=== PATIENT | male | born 1950 | race Caucasian/White ===

== ENCOUNTER 2016-06-14 11:04 | Outpatient (RCR) | payer MEDICARE, OTHER ==
--- OUTSIDE RECORDS SUMMARY | 2016-05-15 14:32 | XMS REPORT | Continuity of Care Document ---
Author Author [facility] Address Unknown Phone Unavailable Care Team Providers Care Mechanical Ordnance Assembler Name Role Phone Jose Palomares PCP [phone] Source Comments Some departments are not documenting in the electronic medical record. If you do not see the information that you expected, contact Release of Information in the Health Information Management department at [phone] for further assistance in locating additional records.[facility] Active Allergies and Adverse Reactions No Known Allergies Current Medications Prescription Sig. Disp. Refills Start End Date Status Date simvastatin (ZOCOR) 40 mg Take 40 mg by mouth at Active tablet bedtime daily. cholecalciferol(+) Take 2,000 Units by mouth Active (VITAMIN D3) 2,000 unit daily. tablet Active Problems Problem Noted Date DVT (deep venous thrombosis) ([facility]) 07/29/2014 Overview: Post-op DVT identified 07/29/14 L ast Assessment & Plan: Continue treatment dose Lovenox. 3 month course nearly complete. Prostate cancer ([facility]) 06/14/2014 Overview: Formatting of this note may be different from the original. Pre-PNBx PSA 5 (05/10/14) 05/17/14 PNBx: GS 5+4 in 05/15 cores 05/25/[address] abd/pel: no evidence of metastatic disease, enhancing renal mass Radical Prostatectomy : 07/14/2014 Prostate Size : Weight: 67g Size: 5.9 x 5.6 x 3.9 cm Lymph Node Sampling : Pelvic lymph node dissection Histologic Type : Adenocarcinoma (acinar, not otherwise specified) Histologic Grade : Em Pattern Primary Pattern : Grade 4 Secondary Pattern : Grade 5 Tertiary Pattern : Grade 3 Total Douglas Score: 4+5=9 Tumor Quantitation Proportion (percentage) of prostate involved by tumor: 50% Extraprostatic Extension : Present, extensive Seminal Vesicle Invasion : Not identified Margin(s) involved by invasive carcinoma : Apical and right posterior margins Treatment Effect on Carcinoma : Not identified Lymph-Vascular Invasion : Not identified Perineural Invasion : Present Pathologic Staging (pTNM) : pT3a pN0 M not applicable Primary Tumor (pT) pT3a: Extraprostatic extension Regional Lymph Nodes (pN) pN0: No regional lymph node metastasis Number of Lymph Nodes Examined Specify: 21 Number of Lymph Nodes Involved Specify:0 Distant Metastasis (pM) Not applicable Additional Pathologic Findings Inflammation (specify type): Acute and chronic inflammation Ancillary Studies Not performed [facility] PSA Hx: Lab Results Component Value Date PSA 0.10 10/25/2014 PSA 0.07 09/06/2014 L ast Assessment & Plan: High-risk prostate cancer. PSA up slightly from 0.07 to 0.1 today. Discussed options with patient today. The two primary options today include continued close observation vs. adjuvant radiation. Patient currently has regained most of his preoperative continence, though he continues to report using 1 pad per day. He understands that adjuvant radiation would likely arrest any further recovery of incontinence, though the risk of further delay in adjuvant treatment is progression of his high-risk disease. - He would to be referred to a radiation oncologist closer to home. Will find a provider in [place], [place] in the [email or web address] system. - He will follow up with us here in 4 months with a PSA. 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 - Will proceed with surveillance. At this time, prostate cancer is the more high-risk disease and immediate management will be focused on his prostate cancer. Social History Tobacco Use Types Packs/Day Years Used Date Former Smoker Cigarettes 1 5 Smokeless Tobacco: Snuff Current User Alcohol Use Drinks/Week oz/Week Comments No 0.0 3 beers / day Last Filed Vital Signs Vital Sign Reading Time Taken Blood Pressure 118/78 10/25/2014 10:16 AM CDT Pulse 65 10/25/2014 10:16 AM CDT Temperature 36.6 C (97.9 F) 07/31/2014 11:25 AM [employer] Respiratory Rate 14 10/25/2014 10:16 AM CDT Height 1.702 m (5' 7") 10/25/2014 10:16 AM CDT Weight 63.322 kg (139 lb 9.6 oz) 10/25/2014 10:16 AM CDT Body Mass Index 21.86 10/25/2014 10:16 AM CDT Oxygen Saturation 100% 07/31/2014 11:25 AM [employer] Plan of Care Health Maintenance Due Date Last Done Comments Hepatitis C Screening 1950 Physical (Comprehensive) 1957 Exam Pertussis Vaccine 1961 Tetanus Vaccine 1967 Colorectal Cancer 02/11/2000 Screening Shingles Vaccine 2010 Prevnar/Pneumovax (#1) 2015 Influenza Vaccine 04/04/2016 Results from Last 3 Months Not on file
== END 2016-08-13 | disposition home or self-care (01) ==
LOC: ONC 11:04
PROVIDERS: ATTEND Radiology Radiation Oncology
DX: C61 Malignant neoplasm of prostate (principal)
CPT/HCPCS: 36415; 84153; 99213

== ENCOUNTER 2016-10-25 11:54 | Outpatient (RCR) | payer MEDICARE, OTHER | END 2017-01-23 | disposition home or self-care (01) | DX: C61 Malignant neoplasm of prostate (principal) ==

== ENCOUNTER 2017-04-28 13:29 | Outpatient (RCR) | payer MEDICARE, OTHER | END 2017-05-03 | disposition home or self-care (01) | LOC: ONC 13:29 | PROVIDERS: ATTEND Radiology Radiation Oncology | DX: C61 Malignant neoplasm of prostate (principal) | CPT/HCPCS: 84153 ==

== ENCOUNTER 2017-11-05 08:57 | Outpatient (RCR) | payer MEDICARE, OTHER | END 2018-02-03 | disposition home or self-care (01) | LOC: ONC 08:57 | PROVIDERS: ATTEND Radiology Radiation Oncology | DX: C61 Malignant neoplasm of prostate (principal) | CPT/HCPCS: 36415; 84153 ==

== ENCOUNTER → 2020-11-30 | Outpatient (CLI) | payer MEDICARE ==
[~2020-11-30] MED LIST: CATHETER FLUSH 10 ML SYR IV PRN; HOLD METFORMIN - RECEIVED CONTRAST 20 ML VIAL IV SCH; IOHEXOL 350 MG/ML 100 ML (OMNIPAQUE 350) VIAL IV ONE; NS 100 ML (IVPB) BAG IV ONE
--- NOTE | 2020-11-30 12:31 | Diagnostic Imaging Report ---
PROCEDURE: CT abdomen and pelvis with contrast. TECHNIQUE: Multiple contiguous axial images were obtained through the abdomen and pelvis after administration of intravenous contrast. Auto Exposure Controls were utilized during the CT exam to meet ALARA standards for radiation dose reduction. All CT scans use one or more of the following dose optimizing techniques: automated exposure control, MA and/or KvP adjustment based on patient size and exam type or iterative reconstruction. INDICATION: Elevated PSA. No prior studies are available for comparison. FINDINGS: There is a large abdominal and pelvic ascites. There appears to be significant thickening and nodularity and masses involving the omentum anteriorly consistent with omental caking. Soft tissue nodule does extend through midline anterior abdominal wall defect. Bowel loops appear to be nonobstructed. No discrete liver mass is identified. Gallbladder is unremarkable. There is no biliary ductal dilatation. Pancreas and spleen are unremarkable. No adrenal mass is identified. Right kidney appears to be surgically absent. Left kidney contains probable tiny nonobstructing calculus in lower pole. There is cortical low density in the left kidney too small to characterize most likely a cyst. Aorta is nonaneurysmal. The bladder is decompressed. The bony structures are nonacute. IMPRESSION: Large abdominal and pelvic ascites. There is significant omental caking and nodularity as well as additional sites of peritoneal nodular implants consistent with peritoneal carcinomatosis. No other significant abnormality is seen. Dictated by: Dictated on workstation # [id number]
--- NOTE | 2020-11-30 18:40 | Diagnostic Imaging Report ---
Whole body bone scan at 1:33 PM INDICATION: Prostate cancer This study was performed following administration of 26 mCi of 99m technetium MDP. Anterior and posterior whole-body images were obtained. There are no prior nuclear medicine bone scans available for comparison. The CT abdomen/pelvis exam performed earlier today did note a large amount of abdominal and pelvic ascites. There was also significant omental caking and nodularity. On this exam, there are vague areas of increased uptake throughout the abdomen and pelvis. These may correspond to the omental masses and/or fluid. There is no abnormal uptake arising from the osseous structures to suggest bone edema or a fracture. As noted on the CT exam, the right kidney is surgically absent. The left kidney does show excretion of the radiotracer. IMPRESSION: 1. There is no evidence for metastatic skeletal disease. 2. The vague areas of slightly increased uptake in the abdomen and pelvis may correspond to the ascites and omental nodules seen on the CT abdomen/pelvis exam. 3. The right kidney is surgically absent. Dictated by: Dictated on workstation # [id number]
== END ==
LOC: CARD 11:13
PROVIDERS: ATTEND Emergency Medicine
DX: C61 Malignant neoplasm of prostate (principal); K91.89 Other postprocedural complications and disorders of digestive system; R18.8 Other ascites; Z90.5 Acquired absence of kidney
CPT/HCPCS: 74177; 78306; A9503

== ENCOUNTER → 2020-12-04 | Outpatient (CLI) | payer MEDICARE, OTHER ==
[2020-12-04] VITALS (8 sets, daily range): BP systolic 103–115; BP diastolic 63–77
[~2020-12-04] VITALS: Ht 167.6 cm; Wt 52.3 kg
[2020-12-04 11:16] LABS: INR 0.9 (0.8-1.4)
--- NOTE | 2020-12-04 17:44 | Diagnostic Imaging Report ---
EXAMINATION: Ultrasound guided paracentesis. INDICATION: Ascites. The previous CT abdomen/pelvis exam of 11/30/2020 noted a large amount of abdominal and pelvic ascites. Following aseptic preparation skin and administration of local anesthesia paracentesis was performed using ultrasound guidance along the right flank. Initially, after the needle passed into the fluid collection fluid could not be retrieved. A second attempt was made and this was successful. Approximately 2 L of dark yellow fluid was removed. The patient tolerated the procedure well and was dismissed in good condition. IMPRESSION: 1. There has been a successful paracentesis. 2. These results were discussed with Dr. Dylan Ray. Dictated by: Dictated on workstation # [id number]
== END ==
LOC: RAD 11:00
PROVIDERS: ATTEND Internal Medicine Hematology & Oncology
DX: R18.8 Other ascites (principal)
CPT/HCPCS: 49083; 85610; 88112; 88305; 88341; 88342; 88344; A7048; 36415

== ENCOUNTER 2020-12-26 05:42 | Outpatient (CLI) | payer MEDICARE ==
[~2020-12-26] VITALS: Ht 167.6 cm; Wt 52.2 kg
[2020-12-26] MEDS ORDERED: CHOL400T29 PO (12:16)
[2020-12-26] MEDS ORDERED: [UNRECOGNIZED DRUG - CODE] SQ (12:16)
[2020-12-28] MEDS ORDERED: ACHD5005 PO ×2 (13:56→15:48)
[2020-12-28] MEDS ORDERED: DOCU-143 PO ×2 (13:56→15:48)
== END 2020-12-26 12:24 | disposition home or self-care (01) ==
LOC: PREOP 05:42
PROVIDERS: ATTEND Surgery
DX: Z01.818 Encounter for other preprocedural examination (principal)

== ENCOUNTER 2020-12-28 11:42 | Day surgery (SDC) | payer MEDICARE, OTHER ==
[~2020-12-28] VITALS: Ht 167.6 cm; Wt 52.2 kg
[2020-12-28] VITALS (7 sets, daily range): BP systolic 112–126; BP diastolic 60–73
[~2020-12-28 11:42] MED LIST changes: -CATHETER FLUSH 10 ML SYR IV PRN; +CHOL400T29 PO; -HOLD METFORMIN - RECEIVED CONTRAST 20 ML VIAL IV SCH; -IOHEXOL 350 MG/ML 100 ML (OMNIPAQUE 350) VIAL IV ONE; +LACTATED RINGERS 1,000 ML IV PRN; -NS 100 ML (IVPB) BAG IV ONE; +[UNRECOGNIZED DRUG - CODE] SQ; +ceFAZolin INJECTION 1,000 MG in WATER (STERILE) FOR INJECTION 10 ML IV ONE
[2020-12-28] MEDS ORDERED: LIDOCAINE/EPI 1%-1:100,000 (XYLOCAINE) 20ML ONE (11:51)
--- NOTE | 2020-12-28 12:16 | Progress Note-Pre Operative ---
Pre-Operative Progress Note H&P Reviewed The H&P was reviewed, patient examined and no changes noted. Date Seen by Provider: December 28, 2020 Time Seen by Provider: 12:16 Date H&P Reviewed: December 28, 2020 Time H&P Reviewed: 12:16 Pre-Operative Diagnosis: ABD WALL MASS HAMILTON PRETTY DO December 28, 2020 12:16
[2020-12-28] MEDS ORDERED: ONDANSETRON 4 MG/2 ML (SDV) Z0FRAN ONE (12:28)
[2020-12-28] MEDS ORDERED: LIDOCAINE PF 2% 5 ML (XYLOCAINE) VIAL ONE (12:28)
[2020-12-28] MEDS ORDERED: SEVOFLURANE (ULTANE) 15 ML INHAL SOLN ONE (12:28)
[2020-12-28] MEDS ORDERED: proPOfol 200 MG/20 ML (DIPRIVAN) VIAL IV ONE (12:28)
[2020-12-28] MEDS ORDERED: fentaNYL INJ 100 MCG/2 ML AMP ONE (12:28)
[2020-12-28] MEDS ORDERED: WATER (STERILE) FOR INJECTION 10 ML ONE (12:34)
[2020-12-28] MEDS ORDERED: ceFAZolin INJECTION 1,000 MG ONE (12:34)
[2020-12-28] MEDS ORDERED: morphine INJ 10 MG/ML 1ML (SYR OR VIAL) IVP ONE ×2 (13:00→14:00)
[2020-12-28] MEDS ORDERED: ONDANSETRON 4 MG/2 ML (SDV) Z0FRAN IVP PRN ×2 (13:00→14:00)
--- NOTE | 2020-12-28 13:54 | Progress Note-Post Operative ---
Post-Operative Progess Note Surgeon (s)/Postal Service Window Clerk (s) Surgeon HAMILTON PRETTY DO Postal Service Window Clerk: na Pre-Operative Diagnosis MASS UPPER RIGHT ABDOMEN Post-Operative Diagnosis incisional hernia, abdominal wall mass Procedure & Operative Findings Date of Procedure 12/28/20 Procedure Performed/Findings excision of abdominal wall mass, primary repair of incisional hernia Anesthesia Type general Estimated Blood Loss Estimated blood loss (mL): 50 mL Specimens/Packing Specimens Removed abdominal wall mass HAMILTON PRETTY DO December 28, 2020 13:54
[2020-12-28] MEDS ORDERED: ACHD5005 PO ×2 (13:56→15:48)
[2020-12-28] MEDS ORDERED: DOCU-143 PO ×2 (13:56→15:48)
--- NOTE | 2020-12-28 13:56 | Discharge Inst-Simple/Standard ---
Discharge Inst-Standard Patient Instructions/Follow Up Plan of Care/Instructions/FU: 2 weeks Dilan Activity as Tolerated: No Discharge Diet: Regular Diet Other Inst to Patient Follow up Appt: Make appointment for 2 week. Instructions: No lifting greater than 10 pounds. No strenuous activity. May shower in 24 hours, no tub bath or soaking. Use incentive spirometer at home as directed. No Smoking Skin/Wound Care: You have zach over incision keep clean and dry. Symptoms to Report: Appetite Changes, Extremity Discoloration, Numbness/Tingling, Swelling Increased, Bleeding Excessive, Eyesight Changes, Pain Increased, Urine Color Change, Constipation(Persistent), Fever over 101 degree F, Pain/Pressure in chest, Urinating Difficulty, Cough Up/Vomit Blood, Heart Beat Irreg/Pounding, Pain/Pressure in jaw, Vaginal Bleeding Increase, Cramps in feet or legs, Lightheadedness, Pain/Pressure in shoulder, Diarrhea(Persistent), Memory Changes Suddenly, Questions/Concerns, Weight gain consecutive days, Dizziness/Fainting, Nausea/Vomiting, Shortness of Breath, Weight gain over 2 pounds If questions or concerns contact your physician Or seek help at emergency department. HAMILTON PRETTY DO December 28, 2020 13:56
[2020-12-28] MEDS ORDERED: HYDROmorphone 2 MG/ML VIAL (DILAUDID) IV ONE (14:00)
--- NOTE | 2020-12-28 14:24 | Anesthesia-General Post-Op ---
General Patient Condition Mental Status/LOC: Same as Preop Cardiovascular: Satisfactory Nausea/Vomiting: Absent Respiratory: Satisfactory Pain: Controlled Complications: Absent Post Op Complications Complications None Follow Up Care/Instructions Patient Instructions None needed. Anesthesia/Patient Condition Patient Condition Patient is doing well, no complaints, stable vital signs, no apparent adverse anesthesia problems. AMARA ARMENTA DO December 28, 2020 14:24
--- NOTE | 2020-12-28 19:59 | OPERATIVE REPORT ---
DATE OF SERVICE: 12/28/2020 PREOPERATIVE DIAGNOSIS: Abdominal wall mass. POSTOPERATIVE DIAGNOSIS: Abdominal wall mass with incisional hernia. PROCEDURE: Excision of abdominal wall mass and primary repair of incisional hernia that is incarcerated. SURGEON: Hamilton Kong DO ANESTHESIA: General. ESTIMATED BLOOD LOSS: 50 mL. COMPLICATIONS: None. INDICATIONS: The patient is a 70-year-old male needing biopsy of mass. He understands risks and benefits of procedure and wishes to proceed. Consent was signed in the chart. DESCRIPTION OF PROCEDURE: The patient was taken to the operating suite. He was prepped and draped in sterile fashion. Timeout was performed. Local anesthetic was infiltrated over the palpable mass. A 15-blade scalpel was then used to make a skin incision and cautery was used to dissect down through the subcutaneous tissue when the palpable mass was able to be located. This was grasped and elevated and began to be dissected noting this was a mass off of omentum that was incarcerated through incisional hernia defect. This was then continued to be mobilized, part of the omentum started bleeding, which was able to be grasped and cautery was able to be used to control bleeding. The mass was then excised. The omentum was then dissected off from the hernia, which was unable to be reduced and using a 0 Vicryl, the defect was then closed, performing primary repair of incisional hernia. The area was then irrigated and suctioned. Hemostasis was achieved. The skin was then closed using zach. The area was then washed and dried and sterile bandage was applied. The patient tolerated procedure well without any complications, taken to recovery room in stable condition. Job ID: [id number] DocumentID: [id number] Dictated Date: 12/28/2020 14:55:55 Aemt Date: 12/28/2020 19:58:12 Dictated By: HAMILTON KONG DO
== END 2020-12-28 15:30 | disposition home or self-care (01) ==
LOC: SDC 11:42
PROVIDERS: ATTEND Surgery
DX: K43.0 Incisional hernia with obstruction, without gangrene (principal); C79.2 Secondary malignant neoplasm of skin; C61 Malignant neoplasm of prostate; I10 Essential (primary) hypertension; R18.8 Other ascites; Z90.49 Acquired absence of other specified parts of digestive tract; Z79.899 Other long term (current) drug therapy; Z85.038 Personal history of other malignant neoplasm of large intestine; Z85.528 Personal history of other malignant neoplasm of kidney; Z80.9 Family history of malignant neoplasm, unspecified
CPT/HCPCS: 36430; 87081

== ENCOUNTER → 2021-01-02 | Outpatient (CLI) | payer MEDICARE, OTHER ==
[~2021-01-02] MED LIST changes: +ACHD5005 PO; +DOCU-143 PO; -LACTATED RINGERS 1,000 ML IV PRN; -ceFAZolin INJECTION 1,000 MG in WATER (STERILE) FOR INJECTION 10 ML IV ONE
[2021-01-02 10:24] LABS: HEMATOCRIT 36 % (40-54); HEMOGLOBIN 11.5 G/DL (13.3-17.7); MEAN CORPUSCULAR HEMOGLOBIN 30 PG (25-34); MEAN CORPUSCULAR HGB CONC 32 G/DL (32-36); MEAN CORPUSCULAR VOLUME 95 FL (80-99); MEAN PLATELET VOLUME 10.7 FL (7.4-10.4); PLATELET COUNT 323 10^3/uL (130-400); WHITE BLOOD COUNT 6.7 10^3/uL (4.3-11.0)
[2021-01-02 10:25] LABS: BASOPHILS % (AUTO) 1 % (0-10); EOSINOPHILS # (AUTO) 0.1 10^3/uL (0.0-0.3); EOSINOPHILS % (AUTO) 2 % (0-10); LYMPHOCYTES # (AUTO) 1.7 X 10^3 (1.0-4.0); LYMPHOCYTES % (AUTO) 24 % (12-44); MONOCYTES # (AUTO) 0.6 X 10^3 (0.0-1.0); MONOCYTES % (AUTO) 9 % (0-12); NEUTROPHILS # (AUTO) 4.4 X 10^3 (1.8-7.8); NEUTROPHILS % (AUTO) 64 % (42-75)
[2021-01-02 10:39] LABS: BUN/CREATININE RATIO 15; CARBON DIOXIDE 29 MMOL/L (21-32); CHLORIDE 99 MMOL/L (98-107); CREATININE SERUM 1.11 MG/DL (0.60-1.30); GFR ESTIMATED > 60; GLUCOSE 106 MG/DL (70-105); POTASSIUM 4.1 MMOL/L (3.6-5.0); SODIUM 137 MMOL/L (135-145)
[2021-01-02 10:40] LABS: ALANINE AMINOTRANSFERASE 5 U/L (0-55); ALKALINE PHOSPHATASE 66 U/L (40-136); BILIRUBIN,TOTAL 0.3 MG/DL (0.1-1.0); TOTAL PROTEIN 6.5 GM/DL (6.4-8.2)
== END ==
LOC: LAB FS 09:47
PROVIDERS: ATTEND Internal Medicine Hematology & Oncology
DX: C61 Malignant neoplasm of prostate (principal)
CPT/HCPCS: 36415; 80053; 84153; 85025

== ENCOUNTER 2021-01-09 08:55 | Outpatient (RCR) | payer MEDICARE, OTHER ==
[2020-12-01 10:19] LABS: BASOPHILS # (AUTO) 0.1 10^3/uL (0.0-0.1); BASOPHILS % (AUTO) 1 % (0-10); EOSINOPHILS # (AUTO) 0.1 10^3/uL (0.0-0.3); EOSINOPHILS % (AUTO) 1 % (0-10); HEMATOCRIT 38 % (40-54); HEMOGLOBIN 12.2 g/dL (13.3-17.7); LYMPHOCYTES # (AUTO) 1.1 10^3/uL (1.0-4.0); LYMPHOCYTES % (AUTO) 14 % (12-44); MEAN CORPUSCULAR HEMOGLOBIN 31 pg (25-34); MEAN CORPUSCULAR HGB CONC 32 g/dL (32-36); MEAN CORPUSCULAR VOLUME 96 fL (80-99); MEAN PLATELET VOLUME 10.6 fL (9.0-12.2); MONOCYTES # (AUTO) 0.8 10^3/uL (0.0-1.0); MONOCYTES % (AUTO) 10 % (0-12); NEUTROPHILS # (AUTO) 5.8 10^3/uL (1.8-7.8); NEUTROPHILS % (AUTO) 74 % (42-75); PLATELET COUNT 360 10^3/uL (130-400); WHITE BLOOD COUNT 7.9 10^3/uL (4.3-11.0)
[2020-12-01 10:39] LABS: ALBUMIN 3.7 GM/DL (3.2-4.5); BILIRUBIN,TOTAL 0.2 MG/DL (0.1-1.0); CALCIUM 10.6 MG/DL (8.5-10.1); CREATININE SERUM 1.29 MG/DL (0.60-1.30); POTASSIUM 4.6 MMOL/L (3.6-5.0); TOTAL PROTEIN 6.1 GM/DL (6.4-8.2)
[~2021-01-09 08:55] MED LIST changes: +LEUPROLIDE 22.5 MG SYRINGE (ELIGARD) SQ SCH
== END 2021-03-01 | disposition home or self-care (01) ==
LOC: ONC 08:55
PROVIDERS: ATTEND Internal Medicine Hematology & Oncology
DX: C61 Malignant neoplasm of prostate (principal); C48.2 Malignant neoplasm of peritoneum, unspecified; D64.9 Anemia, unspecified; R18.8 Other ascites; Z90.79 Acquired absence of other genital organ(s); K59.00 Constipation, unspecified; Z85.528 Personal history of other malignant neoplasm of kidney; Z90.5 Acquired absence of kidney; Z09 Encounter for follow-up examination after completed treatment for conditions other than malignant neoplasm
CPT/HCPCS: 80053; 82378; 84153; 85025; G0463; 96402; 99213; 99214

== ENCOUNTER → 2021-03-06 | Outpatient (CLI) | payer MEDICARE, OTHER ==
[~2021-03-06] MED LIST changes: -LEUPROLIDE 22.5 MG SYRINGE (ELIGARD) SQ SCH
[2021-03-06 08:38] LABS: HEMOGLOBIN 12.7 G/DL (13.3-17.7); MEAN CORPUSCULAR HEMOGLOBIN 31 PG (25-34); WHITE BLOOD COUNT 6.5 10^3/uL (4.3-11.0)
[2021-03-06 08:39] LABS: BASOPHILS % (AUTO) 1 % (0-10); EOSINOPHILS # (AUTO) 0.2 10^3/uL (0.0-0.3); EOSINOPHILS % (AUTO) 3 % (0-10); HEMATOCRIT 40 % (40-54); LYMPHOCYTES % (AUTO) 31 % (12-44); MEAN CORPUSCULAR HGB CONC 32 G/DL (32-36); MEAN CORPUSCULAR VOLUME 97 FL (80-99); MEAN PLATELET VOLUME 10.4 FL (7.4-10.4); MONOCYTES # (AUTO) 0.6 X 10^3 (0.0-1.0); MONOCYTES % (AUTO) 9 % (0-12); NEUTROPHILS # (AUTO) 3.7 X 10^3 (1.8-7.8); NEUTROPHILS % (AUTO) 57 % (42-75); PLATELET COUNT 230 10^3/uL (130-400)
[2021-03-06 09:01] LABS: ALBUMIN 4.3 GM/DL (3.2-4.5); BILIRUBIN,TOTAL 0.3 MG/DL (0.1-1.0); CALCIUM 10.7 MG/DL (8.5-10.1); CREATININE SERUM 1.11 MG/DL (0.60-1.30); POTASSIUM 4.3 MMOL/L (3.6-5.0); TOTAL PROTEIN 6.8 GM/DL (6.4-8.2)
== END ==
LOC: LAB FS 08:10
PROVIDERS: ATTEND Internal Medicine Hematology & Oncology
DX: C61 Malignant neoplasm of prostate (principal)
CPT/HCPCS: 36415; 80053; 85025; G0103; 84153

== ENCOUNTER → 2021-05-30 | Outpatient (CLI) | payer MEDICARE, OTHER ==
[2021-05-30 08:35] LABS: WHITE BLOOD COUNT 6.5 10^3/uL (4.3-11.0)
[2021-05-30 08:36] LABS: BASOPHILS % (AUTO) 1 % (0-10); EOSINOPHILS # (AUTO) 0.3 10^3/uL (0.0-0.3); EOSINOPHILS % (AUTO) 4 % (0-10); HEMATOCRIT 37 % (40-54); LYMPHOCYTES # (AUTO) 1.4 X 10^3 (1.0-4.0); LYMPHOCYTES % (AUTO) 21 % (12-44); MEAN CORPUSCULAR HEMOGLOBIN 31 pg (25-34); MEAN CORPUSCULAR HGB CONC 32 g/dL (32-36); MEAN CORPUSCULAR VOLUME 97 fL (80-99); MEAN PLATELET VOLUME 10.5 fL (9.0-12.2); MONOCYTES # (AUTO) 0.7 X 10^3 (0.0-1.0); MONOCYTES % (AUTO) 10 % (0-12); NEUTROPHILS # (AUTO) 4.1 X 10^3 (1.8-7.8); NEUTROPHILS % (AUTO) 64 % (42-75); PLATELET COUNT 219 10^3/uL (130-400)
[2021-05-30 08:37] LABS: BASOPHILS # (AUTO) 0.1 10^3/uL (0.0-0.1)
[2021-05-30 08:53] LABS: POTASSIUM 4.6 MMOL/L (3.6-5.0)
[2021-05-30 08:54] LABS: ALBUMIN 4.2 GM/DL (3.2-4.5); BILIRUBIN,TOTAL 0.2 MG/DL (0.1-1.0); CALCIUM 10.8 MG/DL (8.5-10.1); CREATININE SERUM 1.19 MG/DL (0.60-1.30); TOTAL PROTEIN 6.8 GM/DL (6.4-8.2)
== END ==
LOC: LAB FS 07:57
PROVIDERS: ATTEND Internal Medicine Hematology & Oncology
DX: C61 Malignant neoplasm of prostate (principal)
CPT/HCPCS: 36415; 80053; 84153; 85025

== ENCOUNTER 2021-06-06 14:33 | Outpatient (RCR) | payer MEDICARE, OTHER ==
[~2021-06-06 14:33] MED LIST changes: +LEUPROLIDE 22.5 MG SYRINGE (ELIGARD) SQ SCH
== END 2021-06-11 | disposition home or self-care (01) ==
LOC: ONC 14:33
PROVIDERS: ATTEND Internal Medicine Hematology & Oncology
DX: Z51.11 Encounter for antineoplastic chemotherapy (principal); C48.2 Malignant neoplasm of peritoneum, unspecified; D64.9 Anemia, unspecified; R18.8 Other ascites; Z90.79 Acquired absence of other genital organ(s); Z90.5 Acquired absence of kidney; Z85.46 Personal history of malignant neoplasm of prostate; Z85.528 Personal history of other malignant neoplasm of kidney
CPT/HCPCS: 96402; G0463

== ENCOUNTER → 2021-08-22 | Outpatient (CLI) | payer MEDICARE, OTHER ==
[~2021-08-22] MED LIST changes: -LEUPROLIDE 22.5 MG SYRINGE (ELIGARD) SQ SCH
[2021-08-22 08:47] LABS: HEMATOCRIT 38 % (40-54); HEMOGLOBIN 12.2 g/dL (13.3-17.7); LYMPHOCYTES % (AUTO) 19 % (12-44); MEAN CORPUSCULAR HEMOGLOBIN 31 pg (25-34); MEAN CORPUSCULAR HGB CONC 32 g/dL (32-36); MEAN CORPUSCULAR VOLUME 95 fL (80-99); MEAN PLATELET VOLUME 11.4 fL (9.0-12.2); NEUTROPHILS % (AUTO) 70 % (42-75); PLATELET COUNT 235 10^3/uL (130-400); WHITE BLOOD COUNT 7.3 10^3/uL (4.3-11.0)
[2021-08-22 08:48] LABS: BASOPHILS % (AUTO) 0 % (0-10); EOSINOPHILS # (AUTO) 0.1 10^3/uL (0.0-0.3); EOSINOPHILS % (AUTO) 1 % (0-10); LYMPHOCYTES # (AUTO) 1.4 X 10^3 (1.0-4.0); MONOCYTES # (AUTO) 0.6 X 10^3 (0.0-1.0); MONOCYTES % (AUTO) 9 % (0-12); NEUTROPHILS # (AUTO) 5.2 X 10^3 (1.8-7.8)
[2021-08-22 09:07] LABS: BILIRUBIN,TOTAL 0.2 MG/DL (0.1-1.0); CALCIUM 10.9 MG/DL (8.5-10.1); CREATININE SERUM 1.26 MG/DL (0.60-1.30); POTASSIUM 4.4 MMOL/L (3.6-5.0); TOTAL PROTEIN 6.9 GM/DL (6.4-8.2)
[2021-08-22 09:08] LABS: ALBUMIN 4.3 GM/DL (3.2-4.5)
== END ==
LOC: LAB FS 08:04
PROVIDERS: ATTEND Internal Medicine Hematology & Oncology
DX: C61 Malignant neoplasm of prostate (principal)
CPT/HCPCS: 36415; 80053; 84153; 85025

== ENCOUNTER 2021-08-27 14:22 | Outpatient (RCR) | payer MEDICARE, OTHER ==
[~2021-08-27 14:22] MED LIST changes: +LEUPROLIDE 22.5 MG SYRINGE (ELIGARD) SQ SCH
== END 2021-09-03 | disposition home or self-care (01) ==
LOC: ONC 14:22
PROVIDERS: ATTEND Internal Medicine Hematology & Oncology
DX: C61 Malignant neoplasm of prostate (principal); D64.9 Anemia, unspecified; Z90.5 Acquired absence of kidney; Z85.528 Personal history of other malignant neoplasm of kidney
CPT/HCPCS: 96402; G0463; 99213

== ENCOUNTER → 2021-09-24 | Outpatient (CLI) | payer MEDICARE, OTHER ==
[~2021-09-24] MED LIST changes: -LEUPROLIDE 22.5 MG SYRINGE (ELIGARD) SQ SCH
[2021-09-24 08:53] LABS: BASOPHILS % (AUTO) 1 % (0-10); EOSINOPHILS # (AUTO) 0.1 10^3/uL (0.0-0.3); EOSINOPHILS % (AUTO) 2 % (0-10); HEMATOCRIT 36 % (40-54); LYMPHOCYTES # (AUTO) 1.2 10^3/uL (1.0-4.0); LYMPHOCYTES % (AUTO) 23 % (12-44); MEAN CORPUSCULAR HEMOGLOBIN 31 pg (25-34); MEAN CORPUSCULAR HGB CONC 33 g/dL (32-36); MEAN CORPUSCULAR VOLUME 92 fL (80-99); MEAN PLATELET VOLUME 10.9 fL (9.0-12.2); MONOCYTES # (AUTO) 0.4 10^3/uL (0.0-1.0); MONOCYTES % (AUTO) 7 % (0-12); NEUTROPHILS # (AUTO) 3.6 10^3/uL (1.8-7.8); NEUTROPHILS % (AUTO) 67 % (42-75); PLATELET COUNT 193 10^3/uL (130-400); WHITE BLOOD COUNT 5.4 10^3/uL (4.3-11.0)
[2021-09-24 09:27] LABS: CALCIUM 10.7 MG/DL (8.5-10.1); CREATININE SERUM 1.16 MG/DL (0.60-1.30); POTASSIUM 4.3 MMOL/L (3.6-5.0)
[2021-09-24 09:28] LABS: ALBUMIN 4.3 GM/DL (3.2-4.5); BILIRUBIN,TOTAL 0.3 MG/DL (0.1-1.0); TOTAL PROTEIN 6.7 GM/DL (6.4-8.2)
== END ==
LOC: LAB FS 08:20
PROVIDERS: ATTEND Internal Medicine Hematology & Oncology
DX: C61 Malignant neoplasm of prostate (principal)
CPT/HCPCS: 36415; 80053; 84153; 85025

== ENCOUNTER → 2021-10-01 | Outpatient (CLI) | payer MEDICARE, OTHER | LOC: ONC 09-24 08:17 → EDSTATUS 13:09 → ONC 13:28 | PROVIDERS: ATTEND Internal Medicine Hematology & Oncology | DX: C61 Malignant neoplasm of prostate (principal); D64.9 Anemia, unspecified | CPT/HCPCS: 99213 ==

== ENCOUNTER → 2021-10-22 | Outpatient (CLI) | payer MEDICARE, OTHER ==
[~2021-10-22] MED LIST changes: +CATHETER FLUSH 10 ML SYR IV PRN; +IOHEXOL 350 MG/ML 100 ML (OMNIPAQUE 350) VIAL IV ONE; +NS 100 ML (IVPB) BAG IV ONE
--- NOTE | 2021-10-22 13:03 | Diagnostic Imaging Report ---
Procedure: CT chest with contrast, CT abdomen and pelvis with and without contrast. Technique: Pre and post intravenous contrast axial imaging of the abdomen and pelvis and post contrast axial imaging of the chest were performed. Auto Exposure Controls were utilized during the CT exam to meet ALARA standards for radiation dose reduction. Date: October 22, 2021. Indication: 71-year-old male, history of prostate cancer. Renal malignancy. Comparison: CT abdomen and pelvis November 30, 2020. Findings: There is no identified pulmonary nodule or lung mass. There is no focal airspace consolidation. There is no pneumothorax. There is no pleural effusion. The central airways are patent. The heart is not enlarged. There is no pericardial effusion. There is no identified abnormally enlarged mediastinal, hilar, or axillary lymph node which meets CT size criteria for adenopathy. There is a low-attenuation left thyroid nodule measuring 9 mm in size on axial image 15. The liver is unremarkable in size and contour. There is no identified liver lesion. The main, right, and left portal veins are patent. The gallbladder is unremarkable. There is no intrahepatic or extrahepatic bile duct dilation. The main pancreatic duct is not abnormally dilated. Unremarkable appearance of the pancreatic parenchyma. The spleen is normal in size. The adrenal glands are unremarkable. Right kidney is absent. There is a low-attenuation left renal lesion on axial image 144 which measures 10 mm in size with internal attenuation of 30 Hounsfield units. This is nonspecific. This lesion is also present on November 30, 2020 and previously measured 10 mm in size. This is unchanged in size. There are probable left parapelvic cysts. There are nonobstructing left renal stones. There are additional subcentimeter low-attenuation left renal lesions too small to characterize. There is no left hydronephrosis. There is no identified ureteral stone. The urinary bladder is grossly unremarkable in appearance. There are atherosclerotic calcifications. There is no identified abnormally enlarged lymph node in the abdomen or pelvis which meets CT size criteria for adenopathy. There are nodular areas of soft tissue attenuation in the peritoneal cavity on the right side of the abdomen on axial image 171 and adjacent sequential images. There is a clearly identified discrete peritoneal nodule in the anterior aspect of the mid abdomen on axial image 153 measuring 1.5 x 1.8 cm in size as well as an additional discrete peritoneal nodule more laterally located on the right on the same image measuring 1.2 x 0.7 cm in size as well as a nodule along the anterior abdominal wall on axial image 152. The overall extent of peritoneal nodularity appears mildly decreased since comparison study on November 30, 2020. There is minimal ascites currently. There is no identified bone lesion specifically concerning for a bone metastasis or otherwise identified acute bony abnormality. Impression: 1. Multiple peritoneal nodules most consistent with peritoneal metastasis with mild interval improvement in number and extent of nodule since November 30, 2020. This also minimal ascites currently which is an interval improvement since November 30, 2020. 2. No evidence of metastatic disease in the chest. 3. 9 mm left thyroid nodule. 4. Status post right nephrectomy. There are subcentimeter left renal lesions as well as an unchanged 10 mm left renal lesion which are not able to be definitively diagnose although are without significant interval change since November 30, 2020. Dictated by: Dictated on workstation # [id number]
== END ==
LOC: RAD 12:15
PROVIDERS: ATTEND Internal Medicine Hematology & Oncology
DX: N28.9 Disorder of kidney and ureter, unspecified (principal); E04.1 Nontoxic single thyroid nodule; Z85.46 Personal history of malignant neoplasm of prostate; Z85.528 Personal history of other malignant neoplasm of kidney; Z90.5 Acquired absence of kidney
CPT/HCPCS: 71260; 74178

== ENCOUNTER 2021-10-31 13:31 | Outpatient (RCR) | payer MEDICARE, OTHER ==
[2021-10-22 10:26] LABS: BASOPHILS % (AUTO) 1 % (0-10); EOSINOPHILS % (AUTO) 0 % (0-10); HEMATOCRIT 37 % (40-54); HEMOGLOBIN 11.9 g/dL (13.3-17.7); LYMPHOCYTES # (AUTO) 1.1 10^3/uL (1.0-4.0); LYMPHOCYTES % (AUTO) 17 % (12-44); MEAN CORPUSCULAR HEMOGLOBIN 31 pg (25-34); MEAN CORPUSCULAR HGB CONC 32 g/dL (32-36); MEAN CORPUSCULAR VOLUME 95 fL (80-99); MEAN PLATELET VOLUME 10.7 fL (9.0-12.2); MONOCYTES # (AUTO) 0.5 10^3/uL (0.0-1.0); MONOCYTES % (AUTO) 8 % (0-12); NEUTROPHILS % (AUTO) 74 % (42-75); PLATELET COUNT 209 10^3/uL (130-400); WHITE BLOOD COUNT 6.7 10^3/uL (4.3-11.0)
[2021-10-22 10:48] LABS: ALBUMIN 4.2 GM/DL (3.2-4.5); BILIRUBIN,TOTAL 0.4 MG/DL (0.1-1.0); CALCIUM 10.9 MG/DL (8.5-10.1); CREATININE SERUM 1.11 MG/DL (0.60-1.30); POTASSIUM 4.5 MMOL/L (3.6-5.0); TOTAL PROTEIN 6.8 GM/DL (6.4-8.2)
[~2021-10-31 13:31] MED LIST changes: -CATHETER FLUSH 10 ML SYR IV PRN; -IOHEXOL 350 MG/ML 100 ML (OMNIPAQUE 350) VIAL IV ONE; -NS 100 ML (IVPB) BAG IV ONE
== END 2021-11-01 | disposition home or self-care (01) ==
LOC: ONC 13:31
PROVIDERS: ATTEND Internal Medicine Hematology & Oncology
DX: C61 Malignant neoplasm of prostate (principal); D64.9 Anemia, unspecified; Z90.5 Acquired absence of kidney; Z90.79 Acquired absence of other genital organ(s); Z85.528 Personal history of other malignant neoplasm of kidney
CPT/HCPCS: 36415; 80053; 84153; 85025; 99213

== ENCOUNTER → 2021-12-03 | Outpatient (CLI) | payer MEDICARE, OTHER ==
[2021-12-03 08:08] LABS: BASOPHILS % (AUTO) 1 % (0-10); EOSINOPHILS % (AUTO) 1 % (0-10); HEMATOCRIT 37 % (40-54); LYMPHOCYTES # (AUTO) 1.1 10^3/uL (1.0-4.0); LYMPHOCYTES % (AUTO) 17 % (12-44); MEAN CORPUSCULAR HEMOGLOBIN 31 pg (25-34); MEAN CORPUSCULAR HGB CONC 33 g/dL (32-36); MEAN CORPUSCULAR VOLUME 94 fL (80-99); MEAN PLATELET VOLUME 10.2 fL (9.0-12.2); MONOCYTES # (AUTO) 0.5 10^3/uL (0.0-1.0); MONOCYTES % (AUTO) 7 % (0-12); NEUTROPHILS % (AUTO) 75 % (42-75); PLATELET COUNT 240 10^3/uL (130-400); WHITE BLOOD COUNT 6.6 10^3/uL (4.3-11.0)
[2021-12-03 09:04] LABS: ALBUMIN 4.3 GM/DL (3.2-4.5); BILIRUBIN,TOTAL 0.2 MG/DL (0.1-1.0); CREATININE SERUM 1.13 MG/DL (0.60-1.30); POTASSIUM 4.4 MMOL/L (3.6-5.0); TOTAL PROTEIN 6.8 GM/DL (6.4-8.2)
== END ==
LOC: LAB FS 07:45
PROVIDERS: ATTEND Internal Medicine Hematology & Oncology
DX: C61 Malignant neoplasm of prostate (principal)
CPT/HCPCS: 36415; 80053; 84153; 85025

== ENCOUNTER 2021-12-10 12:27 | Outpatient (RCR) | payer MEDICARE, OTHER ==
[~2021-12-10 12:27] MED LIST changes: +LEUPROLIDE 22.5 MG SYRINGE (ELIGARD) SQ SCH
== END 2022-01-01 | disposition home or self-care (01) ==
LOC: ONC 12:27
PROVIDERS: ATTEND Internal Medicine Hematology & Oncology
DX: C61 Malignant neoplasm of prostate (principal); D64.9 Anemia, unspecified; E04.1 Nontoxic single thyroid nodule; Z90.5 Acquired absence of kidney; Z90.79 Acquired absence of other genital organ(s); Z85.528 Personal history of other malignant neoplasm of kidney
CPT/HCPCS: 99213

== ENCOUNTER → 2022-01-18 | Outpatient (CLI) | payer MEDICARE, OTHER ==
[~2022-01-18] MED LIST changes: -LEUPROLIDE 22.5 MG SYRINGE (ELIGARD) SQ SCH
[2022-01-18 09:08] LABS: BASOPHILS % (AUTO) 1 % (0-10); EOSINOPHILS # (AUTO) 0.1 10^3/uL (0.0-0.3); EOSINOPHILS % (AUTO) 1 % (0-10); HEMATOCRIT 37 % (40-54); HEMOGLOBIN 12.6 g/dL (13.3-17.7); LYMPHOCYTES # (AUTO) 1.5 10^3/uL (1.0-4.0); LYMPHOCYTES % (AUTO) 17 % (12-44); MEAN CORPUSCULAR HEMOGLOBIN 30 pg (25-34); MEAN CORPUSCULAR HGB CONC 34 g/dL (32-36); MEAN CORPUSCULAR VOLUME 90 fL (80-99); MEAN PLATELET VOLUME 10.5 fL (9.0-12.2); MONOCYTES # (AUTO) 0.8 10^3/uL (0.0-1.0); MONOCYTES % (AUTO) 10 % (0-12); NEUTROPHILS # (AUTO) 6.2 10^3/uL (1.8-7.8); NEUTROPHILS % (AUTO) 72 % (42-75); PLATELET COUNT 292 10^3/uL (130-400); WHITE BLOOD COUNT 8.6 10^3/uL (4.3-11.0)
[2022-01-18 09:39] LABS: POTASSIUM 4.6 MMOL/L (3.6-5.0)
[2022-01-18 09:40] LABS: ALBUMIN 4.3 GM/DL (3.2-4.5); BILIRUBIN,TOTAL 0.3 MG/DL (0.1-1.0); CALCIUM 11.7 MG/DL (8.5-10.1); CREATININE SERUM 1.38 MG/DL (0.60-1.30); TOTAL PROTEIN 6.8 GM/DL (6.4-8.2)
== END ==
LOC: LAB FS 08:46
PROVIDERS: ATTEND Internal Medicine Hematology & Oncology
DX: C61 Malignant neoplasm of prostate (principal)
CPT/HCPCS: 36415; 80053; 84153; 85025

== ENCOUNTER 2022-01-24 10:40 | Outpatient (RCR) | payer MEDICARE, OTHER ==
[2022-01-24] MEDS ORDERED: LEUPROLIDE 22.5 MG SYRINGE (ELIGARD) SQ SCH (12:00)
== END 2022-01-31 | disposition home or self-care (01) ==
LOC: ONC 10:40
PROVIDERS: ATTEND Internal Medicine Hematology & Oncology
DX: C61 Malignant neoplasm of prostate (principal); D64.9 Anemia, unspecified; E04.1 Nontoxic single thyroid nodule; Z90.5 Acquired absence of kidney; Z90.79 Acquired absence of other genital organ(s); Z85.528 Personal history of other malignant neoplasm of kidney
CPT/HCPCS: 99213

== ENCOUNTER → 2022-01-29 | Outpatient (CLI) | payer MEDICARE, OTHER ==
[~2022-01-29] MED LIST changes: +CATHETER FLUSH 10 ML SYR IV PRN; +HOLD METFORMIN - RECEIVED CONTRAST 20 ML VIAL IV SCH; +IOHEXOL 350 MG/ML 100 ML (OMNIPAQUE 350) VIAL IV ONE; +NS 100 ML (IVPB) BAG IV ONE
--- NOTE | 2022-01-29 11:43 | Diagnostic Imaging Report ---
EXAMINATION: CT chest with intravenous contrast, CT abdomen and pelvis without and with intravenous contrast. TECHNIQUE: Pre and post intravenous contrast axial imaging of the abdomen and pelvis and post contrast axial imaging of the chest were performed. All CT scans use one or more of the following dose optimizing techniques: automated exposure control, MA and/or KvP adjustment based on patient size and exam type or iterative reconstruction. HISTORY: Prostate cancer COMPARISON: 10/22/2021 FINDINGS: There is no edema or pneumonia. There is a new small right pleural effusion with pleural metastatic disease. Pleural nodule in the right pleural space measures 1.9 x 1.1 cm. There is tumor deposits on both sides of the right hemidiaphragm with nodularity of both on the peritoneal and pleural space. No pneumothorax. There is no axillary or supraclavicular lymphadenopathy. There is no mediastinal lymphadenopathy. Heart size is normal. There are mild coronary artery calcifications. No pericardial effusion. Aorta is normal in caliber. The liver is normal without focal lesion. There is no biliary ductal dilation. Gallbladder is normal. Pancreas is normal. Spleen is normal. Adrenal glands are normal. There has been right nephrectomy. There are a few cysts in left kidney. No suspicious left renal lesions. There is no hydronephrosis. Urinary bladder is normal. Bowel is normal in caliber without obstruction or inflammation. There is a moderate amount of free fluid in the abdomen, increased from prior exam. There are extensive peritoneal soft tissue masses that have increased in size from prior exam. A right lower quadrant mass measures 5.6 x 4.0 cm, previously 2.9 x 2.4 cm. There is omental caking. A nodule in the omentum extending into the abdominal wall measures 2.0 x 1.8 cm, previously 1.2 x 0.8 cm. No free air. There is a serosal deposit in the pelvis abutting the colon that appears increased in size from prior exam. Aorta is normal in caliber without aneurysm. There are no suspicious osseus lesions. IMPRESSION: 1. Significant increase in peritoneal metastatic disease and new right pleural metastatic disease with small right pleural effusion and a moderate amount of ascites. Dictated by: Dictated on workstation # [id number]
== END ==
LOC: RAD 10:26
PROVIDERS: ATTEND Internal Medicine Hematology & Oncology
DX: C61 Malignant neoplasm of prostate (principal); C78.00 Secondary malignant neoplasm of unspecified lung; J90 Pleural effusion, not elsewhere classified; R18.8 Other ascites
CPT/HCPCS: 71260; 74178

== ENCOUNTER → 2022-02-05 | Outpatient (CLI) | payer MEDICARE, OTHER ==
[~2022-02-05] MED LIST changes: -CATHETER FLUSH 10 ML SYR IV PRN; -HOLD METFORMIN - RECEIVED CONTRAST 20 ML VIAL IV SCH; -IOHEXOL 350 MG/ML 100 ML (OMNIPAQUE 350) VIAL IV ONE; -NS 100 ML (IVPB) BAG IV ONE
[2022-02-05 08:46] LABS: HEMATOCRIT 34 % (40-54); HEMOGLOBIN 11.3 g/dL (13.3-17.7); MEAN CORPUSCULAR HEMOGLOBIN 30 pg (25-34); MEAN CORPUSCULAR HGB CONC 34 g/dL (32-36); MEAN CORPUSCULAR VOLUME 90 fL (80-99); WHITE BLOOD COUNT 8.5 10^3/uL (4.3-11.0)
[2022-02-05 08:47] LABS: BASOPHILS % (AUTO) 1 % (0-10); EOSINOPHILS # (AUTO) 0.2 10^3/uL (0.0-0.3); EOSINOPHILS % (AUTO) 2 % (0-10); LYMPHOCYTES # (AUTO) 1.5 X 10^3 (1.0-4.0); LYMPHOCYTES % (AUTO) 17 % (12-44); MEAN PLATELET VOLUME 11.1 fL (9.0-12.2); MONOCYTES # (AUTO) 0.6 X 10^3 (0.0-1.0); MONOCYTES % (AUTO) 7 % (0-12); NEUTROPHILS # (AUTO) 6.3 X 10^3 (1.8-7.8); NEUTROPHILS % (AUTO) 73 % (42-75); PLATELET COUNT 281 10^3/uL (130-400)
[2022-02-05 10:04] LABS: BILIRUBIN,TOTAL 0.3 MG/DL (0.1-1.0); CALCIUM 10.8 MG/DL (8.5-10.1); CREATININE SERUM 1.25 MG/DL (0.60-1.30); POTASSIUM 4.3 MMOL/L (3.6-5.0)
[2022-02-05 10:05] LABS: ALBUMIN 3.7 GM/DL (3.2-4.5); TOTAL PROTEIN 6.1 GM/DL (6.4-8.2)
== END ==
LOC: LAB FS 08:10
PROVIDERS: ATTEND Internal Medicine Hematology & Oncology
DX: C61 Malignant neoplasm of prostate (principal)
CPT/HCPCS: 36415; 80053; 84153; 85025

== ENCOUNTER 2022-02-18 08:51 | Outpatient (RCR) | payer MEDICARE, OTHER ==
[~2022-02-18] VITALS: Ht 167.6 cm; Wt 50.8 kg
[2022-02-19] MEDS ORDERED: FOSAPREPITANT (CANCER CENTER) 150 MG in NS (IVPB) CANCER CENTER ONLY 150 ML IV SCH (10:30)
[2022-02-19] MEDS ORDERED: HEParin (CENTRAL IV FLUSH) 500 UNIT/5 ML SYR IV PRN (10:30)
[2022-02-19] MEDS ORDERED: diphenhydrAMINE 25 MG TAB (BENADRYL) PO SCH (10:30)
[2022-02-19] MEDS ORDERED: NS IV 1000 ML (CANCER CTR) IV SCH (10:30)
[2022-02-19] MEDS ORDERED: PALONOSETRON HCL 0.25 MG, dexAMETHasone INJECTION 10 MG in NS (IVPB) 50 ML IV SCH (10:30)
[2022-02-19] MEDS ORDERED: DOCETAXEL IV SCH (10:30)
[2022-02-19] MEDS ORDERED: FAMOTIDINE 20MG/2ML IV (PEPCID) IV PRN (10:30)
[2022-02-19] MEDS ORDERED: NORMAL SALINE IV SCH (10:30)
== END 2022-03-03 | disposition home or self-care (01) ==
LOC: ONC 08:51
PROVIDERS: ATTEND Internal Medicine Hematology & Oncology
DX: C61 Malignant neoplasm of prostate (principal); D64.9 Anemia, unspecified; E04.1 Nontoxic single thyroid nodule; Z90.5 Acquired absence of kidney; Z90.79 Acquired absence of other genital organ(s); Z85.528 Personal history of other malignant neoplasm of kidney
CPT/HCPCS: 84153; G0463; 36415; 99213

== ENCOUNTER → 2022-03-05 | Outpatient (CLI) | payer MEDICARE, OTHER ==
[2022-03-05 10:08] LABS: BASOPHILS % (AUTO) 0 % (0-10); EOSINOPHILS # (AUTO) 0.1 10^3/uL (0.0-0.3); EOSINOPHILS % (AUTO) 1 % (0-10); HEMATOCRIT 35 % (40-54); HEMOGLOBIN 11.6 g/dL (13.3-17.7); LYMPHOCYTES # (AUTO) 1.4 10^3/uL (1.0-4.0); LYMPHOCYTES % (AUTO) 14 % (12-44); MEAN CORPUSCULAR HEMOGLOBIN 31 pg (25-34); MEAN CORPUSCULAR HGB CONC 34 g/dL (32-36); MEAN CORPUSCULAR VOLUME 93 fL (80-99); MEAN PLATELET VOLUME 10.7 fL (9.0-12.2); MONOCYTES # (AUTO) 0.8 10^3/uL (0.0-1.0); MONOCYTES % (AUTO) 8 % (0-12); NEUTROPHILS # (AUTO) 7.4 10^3/uL (1.8-7.8); NEUTROPHILS % (AUTO) 77 % (42-75); PLATELET COUNT 292 10^3/uL (130-400); WHITE BLOOD COUNT 9.6 10^3/uL (4.3-11.0)
[2022-03-05 11:08] LABS: POTASSIUM 4.1 MMOL/L (3.6-5.0)
[2022-03-05 11:09] LABS: ALBUMIN 3.9 GM/DL (3.2-4.5); BILIRUBIN,TOTAL 0.2 MG/DL (0.1-1.0); CALCIUM 11.1 MG/DL (8.5-10.1); CREATININE SERUM 1.02 MG/DL (0.60-1.30); TOTAL PROTEIN 6.4 GM/DL (6.4-8.2)
== END ==
LOC: LAB FS 09:51
PROVIDERS: ATTEND Internal Medicine Hematology & Oncology
DX: C61 Malignant neoplasm of prostate (principal)
CPT/HCPCS: 36415; 80053; 84153; 85025

== ENCOUNTER → 2022-03-06 | Outpatient (CLI) | payer MEDICARE, OTHER ==
[~2022-03-06] MED LIST changes: +CATHETER FLUSH 10 ML SYR IV PRN; +HOLD METFORMIN - RECEIVED CONTRAST 20 ML VIAL IV SCH; +IOHEXOL 350 MG/ML 100 ML (OMNIPAQUE 350) VIAL IV ONE; +NS 100 ML (IVPB) BAG IV ONE
--- NOTE | 2022-03-06 18:04 | Diagnostic Imaging Report ---
PROCEDURE: CT of the chest and pelvis with contrast and CT of the abdomen with and without contrast. TECHNIQUE: Precontrast acquisitions were acquired through the abdomen. Multiple contiguous axial images were obtained through the chest, abdomen and pelvis after administration of intravenous contrast. Auto Exposure Controls were utilized during the CT exam to meet ALARA standards for radiation dose reduction. INDICATION: Prostate cancer. COMPARISON: 01/29/2022. FINDINGS: CT CHEST: The pleural nodule in the lower right hemithorax is stable in size measuring approximately 1.9 x 1.1 cm. Small to moderate-sized right pleural effusion is unchanged. Marked irregular rind-like thickening of the right hemidiaphragm has progressed. No supraclavicular or axillary lymphadenopathy. No mediastinal or hilar lymphadenopathy. The heart is normal in size without pericardial effusion. No pneumonia or edema. No suspicious pulmonary nodules have developed. No blastic skeletal metastases. CT ABDOMEN AND PELVIS: The small volume of ascites has mildly increased. Multifocal peritoneal carcinomatosis is similar to prior examination. The right lower quadrant mass measures 6.2 x 5.1 cm (previously 5.6 x 4.6 cm when measured similarly). The omental caking is similar with the dominant omental nodule extending into the anterior abdominal wall measuring 2.2 x 2.3 cm (previously 2.1 x 1.8 cm when measured similarly). No focal hepatic lesion. Cholelithiasis is noted. Spleen is normal in size. Pancreas is without mass. Right nephrectomy. Left kidney enhances normally without solid mass or obstruction. The urinary bladder is distended with soft tissue nodular caking along its surface. No bowel obstruction. No blastic skeletal metastases. IMPRESSION: 1. Continued progression of disease with worsening of peritoneal carcinomatosis and right pleural metastatic disease. The metastases involving the right hemidiaphragm have significantly worsened. Dictated by: Dictated on workstation # [id number]
== END ==
LOC: RAD FS 10:32
PROVIDERS: ATTEND Internal Medicine Hematology & Oncology
DX: C61 Malignant neoplasm of prostate (principal); C78.2 Secondary malignant neoplasm of pleura
CPT/HCPCS: 71260; 74178; Q9967

== ENCOUNTER 2022-03-14 14:04 | Outpatient (RCR) | payer MEDICARE, OTHER ==
[~2022-03-14 14:04] MED LIST changes: -CATHETER FLUSH 10 ML SYR IV PRN; -HOLD METFORMIN - RECEIVED CONTRAST 20 ML VIAL IV SCH; -IOHEXOL 350 MG/ML 100 ML (OMNIPAQUE 350) VIAL IV ONE; -NS 100 ML (IVPB) BAG IV ONE
== END 2022-04-03 | disposition home or self-care (01) ==
LOC: ONC 14:04
PROVIDERS: ATTEND Internal Medicine Hematology & Oncology
DX: C61 Malignant neoplasm of prostate (principal); D64.9 Anemia, unspecified; E04.1 Nontoxic single thyroid nodule; Z90.5 Acquired absence of kidney; Z90.79 Acquired absence of other genital organ(s); Z85.528 Personal history of other malignant neoplasm of kidney
CPT/HCPCS: 99213

== ENCOUNTER → 2022-04-01 | Outpatient (CLI) | payer MEDICARE, OTHER ==
--- NOTE | 2022-04-01 15:51 | Diagnostic Imaging Report ---
PROCEDURE: US Abdomen, limited. TECHNIQUE: Multiple realtime grayscale images were obtained over the abdomen in various projections. INDICATION: Prostate cancer. Abdominal distention. FINDINGS: Limited imaging shows a large volume of ascites. Fluid is present in all 4 quadrants. IMPRESSION: Relatively large volume of ascites is demonstrated today. Dictated by: Dictated on workstation # [id number]
== END ==
LOC: RAD 14:37
PROVIDERS: ATTEND Surgery
DX: R18.8 Other ascites (principal)
CPT/HCPCS: 76705

== ENCOUNTER 2022-04-05 07:40 | Outpatient (CLI) | payer MEDICARE, OTHER ==
[~2022-04-05] VITALS: Ht 170.2 cm; Wt 52.2 kg
[2022-04-05 07:45] VITALS: BP 106/73
[2022-04-05] MEDS ORDERED: LIDOCAINE 1% INJ 20 ML VIAL ONE (08:02)
--- NOTE | 2022-04-05 08:55 | Diagnostic Imaging Report ---
INDICATION: Ascites Abdominal films obtained in all 4 quadrants demonstrate a moderate to large amount of ascites. Paracentesis was performed by the referring physician. IMPRESSION: Ultrasound images demonstrate moderate to large ascites. Dictated by: Dictated on workstation # [id number]
[2022-04-05] MEDS ORDERED: LIDOCAINE 1% INJ 20 ML VIAL INJ ONE (14:30)
--- NOTE | 2022-04-06 01:23 | OPERATIVE REPORT ---
DATE OF SERVICE: 04/05/2022 PREOPERATIVE DIAGNOSIS: Symptomatic ascites. POSTOPERATIVE DIAGNOSIS: Symptomatic ascites. PROCEDURE: Ultrasound-guided paracentesis. SURGEON: Hamilton Kong DO ANESTHESIA: 1% lidocaine 4 mL. COMPLICATIONS: None. INDICATIONS: The patient is a 72-year-old male with symptomatic ascites. He understands risks and benefits of procedure and wishes to proceed. Consent was signed in the chart. DESCRIPTION OF PROCEDURE: The patient was placed in supine position. Ultrasound was used to isolate the largest pocket, which was in the right upper quadrant. The area was then prepped and draped in sterile fashion. Timeout was performed. Local anesthetic was infiltrated and through the right upper quadrant abdominal wall, 11 blade scalpel was used to make a small skin incision and [id number] needle and catheter were then advanced through the abdominal wall until straw-colored fluid was withdrawn. The catheter was advanced and the needle was removed. A total of 3300 mL of straw-colored fluid was withdrawn. The catheter was then removed and sterile bandage was applied. The patient tolerated procedure well without any complications. Job ID: [id number] DocumentID: [id number] Dictated Date: 04/05/2022 21:48:43 Funds Transfer Clerk Date: 04/06/2022 01:22:07 Dictated By: HAMILTON KONG DO
== END 2022-04-05 09:50 | disposition home or self-care (01) ==
LOC: RAD 07:40
PROVIDERS: ATTEND Surgery
DX: R18.8 Other ascites (principal)
CPT/HCPCS: 49082; 76942